=== PATIENT | female | born 1945 | race Caucasian/White ===

== ENCOUNTER 2022-11-23 04:50 | Inpatient (IN) ==
[2022-11-23] MEDS ORDERED: IOPAMIDOL 100 ML BOTTLE IV ONE (04:51)
--- NOTE | 2022-11-23 05:22 | Emergency Department Note ---
Fall HPI General Chief Complaint: Fall Stated Complaint: fall hit head Time Seen by Provider: 11/23/22 05:15 Mode of arrival: EMS History of Present Illness HPI Narrative: Narrative: This 77-year-old female presents from [place] after having fallen try to go to the bathroom. She states she just felt suddenly overwhelmed with weakness and went down. She denies any loss of consciousness but states she did hit the right side of her head. She remembers hitting her head and calling for help. Her daughter who is with her states that she has not been feeling well lately without any specific symptoms she coughs occasionally denies being febrile denies any urinary tract symptoms nausea vomiting or diarrhea. She states her mother's had septic pneumonia several times. Her past medical history is positive for diffuse arthritis polymyalgia rheumatica IBS hy pertension hypothyroidism, long-term history of tobacco use, and migraines. Related Data Home Medications Medication Instructions Recorded Confirmed aspirin 81 mg chewable tablet 81 mg PO DAILY 07/23/15 03/30/22 (Patricia Chewable Low Dose Aspirin) levothyroxine 88 mcg tablet 88 mcg PO DAILY 07/23/15 11/23/22 lorazepam 2 mg tablet (Ativan) 2 mg PO .COMPLEX 07/23/15 11/23/22 omeprazole 20 mg capsule,delayed 20 mcg PO DAILY 07/23/15 03/30/22 release trazodone 150 mg tablet 150 mg PO HS 07/23/15 11/23/22 albuterol sulfate 90 mcg/actuation 1 inh inhalation ONCE 01/08/21 03/30/22 aerosol inhaler (Ventolin HFA) amlodipine 5 mg tablet 5 mg PO QDAY 01/08/21 11/23/22 cholecalciferol (vitamin D3) 125 125 mcg PO QDAY 01/08/21 03/30/22 mcg (5,000 unit) capsule hydrochlorothiazide 25 mg tablet 25 mg PO QDAY 01/08/21 03/30/22 metoprolol succinate 50 mg 50 mg PO QDAY 01/08/21 11/23/22 tablet,extended release 24 hr naloxone 4 mg/actuation nasal 4 mg intranasal Q2M 01/08/21 11/23/22 spray (Narcan) apixaban 5 mg tablet (Eliquis) 5 mg PO BID 01/26/22 11/23/22 fentanyl 50 mcg/hr transdermal 1 patch transdermal Q48H 01/26/22 11/23/22 patch hydromorphone 4 mg tablet 4 mg PO Q6H PRN Pain, Severe 01/26/22 11/23/22 cephalexin 500 mg capsule 500 mg PO BID 03/30/22 03/30/22 promethazine 25 mg tablet 25 mg PO Q6H PRN Nausea 03/30/22 11/23/22 Metamucil 11/23/22 bismuth subsalicylate 262 mg PO 11/23/22 tablet (Pepto-Bismol) docusate sodium 100 mg PO DAILY 11/23/22 11/23/22 sumatriptan 100 mg PO 11/23/22 Previous Rx's Medication Instructions Recorded azithromycin 250 mg tablet 250 mg PO QDAY 4 days #4 tabs 11/23/22 Allergies Allergy/AdvReac Type Severity Reaction Status Date / Time nitrofurantoin Allergy Severe Swelling Verified 11/23/22 06:03 [From Macrobid] of Lip/Tongue/Throat Penicillins Allergy Mild Hives Verified 11/23/22 06:03 duloxetine [From Cymbalta] Allergy Unknown Confusion, Verified 11/23/22 06:03 Nausea sulfamethoxazole Allergy Unknown Abdominal Verified 11/23/22 06:03 [From Bactrim] pain, Nausea trimethoprim [From Bactrim] Allergy Unknown Abdominal Verified 11/23/22 06:03 pain, Nausea ciprofloxacin [From Cipro] Allergy Unknown Verified 11/23/22 06:03 moxifloxacin [From Avelox] AdvReac Mild Cramping Verified 11/23/22 06:03 of the Muscles Review of Systems ROS ROS Narrative: Narrative: All systems ED: reviewed and negative except as stated. [facility] Narrative Patient History Narrative: Narrative: Medical/Surgical/Family History All Active Problems (Updated 11/23/22 @ 06:56 by Pradeep Tomlinson MD) CHI (closed head injury) (Acute) Bronchitis (Acute) Spondylosis without myelopathy or radiculopathy, lumbar region (Acute) Spondylolysis, thoracolumbar region (Acute) Radiculopathy, lumbar region (Acute) Right foot pain (Acute) Osteoarthritis (Chronic) Bladder infection, chronic (Chronic) Polymyalgia rheumatica (Chronic) IBS (irritable bowel syndrome) (Chronic) Acute hepatitis A (Chronic) Arthritis (Chronic) Nausea (Chronic) Fibromyalgia (Chronic) Leg ulcer (Chronic) GERD (gastroesophageal reflux disease) (Chronic) Chronic bronchitis (Chronic) Pneumonia (Chronic) Essential hypertension (Chronic) Chronic pain (Chronic) Insomnia (Chronic) Depressive disorder (Chronic) Nicotine dependence (Chronic) Anxiety (Chronic) Pleural fibrosis (Chronic) Right knee pain (Chronic) Hypercholesterolemia (Chronic) Depression (Chronic) Hypothyroid (Chronic) Other specified disorders of urethra (Chronic) History of tobacco use (Chronic) Postlaminectomy syndrome, not elsewhere classified (Chronic) Other chronic pain (Chronic) Cervicalgia (Chronic) Myalgia (Chronic) Migraine with aura, intractable, without status migrainosus (Chronic) Medical History (Updated 11/23/22 @ 06:56 by Pradeep Tomlinson MD) Acute hepatitis A as a child Anxiety Arthritis Bladder infection, chronic Cervicalgia Chronic bronchitis Chronic pain Depression Depressive disorder Essential hypertension Fibromyalgia GERD (gastroesophageal reflux disease) History of tobacco use Hypercholesterolemia Hypothyroid IBS (irritable bowel syndrome) Insomnia Leg ulcer mixed arteriovenous Migraine with aura, intractable, without status migrainosus Myalgia Nausea Nicotine dependence Osteoarthritis Other chronic pain Other specified disorders of urethra spasms Pleural fibrosis post-infective Pneumonia Polymyalgia rheumatica Postlaminectomy syndrome, not elsewhere classified Radiculopathy, lumbar region Right foot pain Right knee pain Spondylolysis, 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, lumbar region Surgical History (Updated 01/28/21 @ 10:51 by Liset Madrigal) History of appendectomy History of back surgery spinal cord sterotaxis stimulation unit placement and removalarthr History of bilateral cataract extraction History of cervical spinal surgery History of hysterectomy History of left knee replacement History of lumbar surgery decompression History of repair of hiatal hernia History of replacement of both shoulder joints History of right knee joint replacement History of surgery SCS Permanent [facility] 07/25/1507/08 SCS Trial w/sed 07/08/201504/05 RFTC Bilat C3-7 w/ sed 04/03/1303/05 MBB Bilat C3-7 w/sed 03/13/1303/05 MBB Bilat C3-7 w/sed 02/26/1301/03 VIDAL #2 C6-7 w/o sed 01/10/201311/05 VIDAL #1 w/o sed 11-16-1209/04 VIDAL #3 C7-T1 and Sanchez Occipital Blocks w/out sed 06/04 Occipital Nerve Block Bilateral w/o sed 05-30-1206/04 VIDAL #2 w/o sed 05-30-1205/04 Shoulder Joint Injection 05-10-1205/04 VIDAL #1 w/o sed 05-10-1211/03 Catheter Dye Study, tip intact 11/10/10 w/o sed 04/02 VIDAL #1, C7-T1 04/16/10 w/o sed 12/03 IMPLANT OR REPLACEMENT PUMP [facility] 09/30 Trigger Point Injection 3 > 10/09/08 History of thumb surgery Right History of tonsillectomy and adenoidectomy Family History (Updated 01/22/22 @ 07:39 by Shirley Castellanos) Father , 84 CVA (cerebral vascular accident) Arthritis Brother Arthritis Sister Arthritis Mother , Age 96 Old age Social History Smoking Status: Former smoker Alcohol Intake Frequency: does not drink Substance Use: does not use Exam Narrative Narrative: Narrative: General: No acute distress alert and oriented x3 answers questions cogently. Skin: No abrasions ecchymosis or hematomas. Ortho: Full range of motion of all joints without deformities neck nontender to both lateral and dorsal compression head shows no raccoon eyes graham signs but the questionable right-sided hemotympanums. Lungs: Questionable right-sided rhonchi without rales or wheezes. CV: Regular rate and rhythm without murmurs clicks rubs or gallops neuro: GCS equals 15 cranial nerves II through XII are grossly intact there is no peripheral or sensorimotor deficits. Course Vital Signs Vital signs: Vital Signs Temperature 100.2 F H 11/23/22 04:50 Pulse Rate 62 11/23/22 04:50 Respiratory Rate 20 11/23/22 04:50 Blood Pressure 103/75 11/23/22 04:50 Pulse Oximetry (%) 86 L 11/23/22 04:50 Oxygen Delivery Method Room Air 11/23/22 04:50 Temperature 100.2 F H 11/23/22 04:50 Pulse Rate 53 L 11/23/22 06:01 Respiratory Rate 25 H 11/23/22 06:01 Blood Pressure 109/69 11/23/22 06:01 Pulse Oximetry (%) 94 11/23/22 06:01 Oxygen Delivery Method Nasal Cannula 11/23/22 05:16 Oxygen Flow Rate (L/min) 2 11/23/22 05:16 MDM MDM Narrative Medical decision making narrative: Narrative: Patient presented with a pulse ox of 86% without any respiratory distress. She also has a relative tachypnea, and developed a slight fever while in the ED. She is on Eliquis for previous a. fib, but has been in sinus rhythm while in the ED. She has a history of COPD, although she stopped smoking years ago, and its possible that she has a developing bronchitis, as well as the closed head injury. In talking to the daughter she had to move into [place] because her killed himself 2 months ago, after which they took her house and her dog, and while she is currently on Zoloft, I believe counseling could help. As for the head trauma, her head and neck CTs were negative, and she has no peripheral fractures. She is on a fentanyl patch and Dilaudid for arthritic pain, so there is nothing we can add for analgesia. We will consult [facility] for CBT. Sepsis Sepsis Identified: No Lab Data 11/23/22 05:53 Labs: Lab Results 11/23/22 11/23/22 11/23/22 Range/Units 05:46 05:46 05:53 WBC 8.2 (4.5-11.0) K/mcL RBC 4.01 (3.59-5.38) M/mcL Hgb 11.4 (11.2-15.7) g/dL Hct 36.4 (34.1-44.9) % POC Hct 35.0 L (36-48) MCV 90.8 (80.0-100.0) fL MCH 28.4 (26.0-34.0) pg MCHC 31.3 (31.0-36.0) g/dL RDW 14.2 (11.5-14.5) % Plt Count 175 (140-440) K/mcL MPV 10.0 (8.8-12.5) fL Immature Gran % (Auto) 0.4 (0.0-0.5) % Neut % (Auto) 78.7 H (38.0-78.0) % Lymph % (Auto) 8.8 L (15.5-49.0) % [place] % (Auto) 11.0 (1.0-12.0) % Eos % (Auto) 0.9 (0.0-7.0) % Baso % (Auto) 0.2 (0.0-2.0) % Lymph # (Auto) 0.72 L (1.50-4.80) K/mcL [place] # (Auto) 0.90 (0.10-0.90) K/mcL Eos # (Auto) 0.07 (0.00-0.70) K/mcL Baso # (Auto) 0.02 (0.00-0.30) K/mcL Immature Gran # 0.03 (0.00-0.05) K/mcl Absolute Neutrophils 6.41 (1.80-8.00) K/mcL POC VBG pH 7.39 (7.32-7.42) POC VBG pCO2 at Temp 45.7 (41-51) POC VBG pO2 29 (25-40) POC VBG HCO3 27.7 (24-28) POC VBG Total CO2 29.0 (25-29) POC Venous O2 Sat 53.0 (40-70) POC VBG Base Excess 3.0 H (-2-2) VBG Lactic Acid 0.5 (0.5-2) POC Sodium 141 (133-145) POC Potassium 3.6 (3.3-5.1) POC Chloride 102 (96-108) POC Total CO2 30.0 (22-30) POC BUN 17 (6-20) POC Creatinine 1.2 (0.6-1.2) POC Glucose 106 H (70-105) POC WB Ioniz Calcium 1.15 L (1.16-1.32) Procalcitonin (<0.10) ng/mL 11/23/22 Range/Units 05:53 WBC (4.5-11.0) K/mcL RBC (3.59-5.38) M/mcL Hgb (11.2-15.7) g/dL Hct (34.1-44.9) % POC Hct (36-48) MCV (80.0-100.0) fL MCH (26.0-34.0) pg MCHC (31.0-36.0) g/dL RDW (11.5-14.5) % Plt Count (140-440) K/mcL MPV (8.8-12.5) fL Immature Gran % (Auto) (0.0-0.5) % Neut % (Auto) (38.0-78.0) % Lymph % (Auto) (15.5-49.0) % [place] % (Auto) (1.0-12.0) % Eos % (Auto) (0.0-7.0) % Baso % (Auto) (0.0-2.0) % Lymph # (Auto) (1.50-4.80) K/mcL [place] # (Auto) (0.10-0.90) K/mcL Eos # (Auto) (0.00-0.70) K/mcL Baso # (Auto) (0.00-0.30) K/mcL Immature Gran # (0.00-0.05) K/mcl Absolute Neutrophils (1.80-8.00) K/mcL POC VBG pH (7.32-7.42) POC VBG pCO2 at Temp (41-51) POC VBG pO2 (25-40) POC VBG HCO3 (24-28) POC VBG Total CO2 (25-29) POC Venous O2 Sat (40-70) POC VBG Base Excess (-2-2) VBG Lactic Acid (0.5-2) POC Sodium (133-145) POC Potassium (3.3-5.1) POC Chloride (96-108) POC Total CO2 (22-30) POC BUN (6-20) POC Creatinine (0.6-1.2) POC Glucose (70-105) POC WB Ioniz Calcium (1.16-1.32) Procalcitonin 0.35 H (<0.10) ng/mL ED POC Tests ED POC Tests: ADRIANO - Influenza A Negative ADRIANO - Influenza B Negative ADRIANO - SARS Antigen Negative Discharge Plan Patient/Caregiver Discharge Instructions Pt seen by DRY CLEANING SUPERVISOR/PA only: No Clinical Impression: CHI (closed head injury), Bronchitis Instructions: Head Injury (ED), Acute Bronchitis (ED) Patient Disposition: Xfer Assisted Living Facility Follow up with: Pradeep Florian DO [Primary Care Provider] - Prescriptions: New azithromycin 250 mg tablet 250 mg PO QDAY 4 Days Qty: 4 0RF Rx Instructions: start on day 2 of therapy No Action amlodipine 5 mg tablet 5 mg PO QDAY hydrochlorothiazide 25 mg tablet 25 mg PO QDAY metoprolol succinate 50 mg tablet extended release 24 hr 50 mg PO QDAY Narcan 4 mg/actuation spray,non-aerosol 4 mg intranasal Q2M Rx Instructions: spray 1 dose into ONE nostril; alternate nostrils w each dose until help arrives albuterol sulfate [Ventolin HFA] 90 mcg/actuation HFA aerosol inhaler 1 inh inhalation ONCE cholecalciferol (vitamin D3) 125 mcg (5,000 unit) capsule 125 mcg PO QDAY fentanyl 50 mcg/hr patch 72 hour 1 patch transdermal Q48H hydromorphone 4 mg tablet 4 mg PO Q6H PRN (Reason: Pain, Severe) Eliquis 5 mg tablet 5 mg PO BID promethazine 25 mg tablet 25 mg PO Q6H PRN (Reason: Nausea) cephalexin 500 mg capsule 500 mg PO BID levothyroxine 88 MCG tablet 88 mcg PO DAILY lorazepam [Ativan] 2 MG tablet 2 mg PO .COMPLEX Rx Instructions: as needed trazodone 150 MG tablet 150 mg PO HS omeprazole 20 MG capsule 20 mcg PO DAILY aspirin [Patricia Chewable Aspirin] 81 MG tablet,chewable 81 mg PO DAILY Metamucil capsule Pepto-Bismol 262 mg Tablet PO docusate sodium 100 mg 100 mg PO DAILY sumatriptan 100 mg 100 mg PO
--- NOTE | 2022-11-23 05:49 | Cat Scan Report ---
INDICATION: FALL COMPARISON: None. TECHNIQUE: Axial noncontrast-enhanced images through the brain. Sagittally and coronally reformatted images. FINDINGS: Cerebral hemispheres:Negative. No intra-axial abnormality. No intra-axial hematoma. No localized mass effect. There is mild cerebral atrophy. This is probably within normal limits for age. Nonacute infarct of the paramesial posterior left parietal lobe and occipital lobe. No acute intra-axial abnormality. Brainstem and cerebellum:No intra-axial abnormality Extra-axial:No acute hemorrhage. No subdural or epidural hematoma. No subarachnoid hemorrhage. Basilar cisterns are normal Calvarial:No calvarial fracture. No lytic lesion Temporal bones are negative. No destructive lesions Soft tissue, orbits, sinuses:Orbits and visualized facial soft tissues and paranasal sinuses are negative IMPRESSION: 1. No acute intracranial hemorrhage. No acute abnormality 2. Mild cerebral atrophy. 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 The exam was performed using radiation dose optimization techniques including, but not limited to, automated exposure control, adjustment of the mA and/or kV according to patient size and use of iterative reconstruction technique. Interpreted and Authenticated by: Ky Monk 11/23/22
[2022-11-23 05:50] LABS: POC Calcium, Ionized 1.15 (1.16-1.32); POC Creatinine 1.2 (0.6-1.2); POC Potassium 3.6 (3.3-5.1)
--- NOTE | 2022-11-23 05:54 | Cat Scan Report ---
INDICATION: FALL COMPARISON: None. TECHNIQUE: Axial thin section images through the cervical spine. Sagittally and coronally reformatted images. The exam was performed using radiation dose optimization techniques including, but not limited to, automated exposure control, adjustment of the mA and/or kV according to patient size and use of iterative reconstruction technique. FINDINGS: Vertebral bodies, spinous processes:No vertebral body or spinous process fracture. No acute abnormality. Alignment is anatomic without anterolisthesis Normal odontoid process. No fracture. Occipital condyles and C1 are negative. No atlantoaxial subluxation. Facets:No perched or locked facet. No facet complex fracture. There is multilevel degenerative facet arthropathy. Disc spaces:Severe disc narrowing at C6-7. Temporal bones:Negative. No basilar skull fracture Cervical soft tissues: Negative. No prevertebral soft tissue swelling. Lung apices:No pneumothorax. No focal apical parenchymal mass. There is significant centrilobular emphysema as well as bronchial wall thickening. Appearance is consistent with emphysema and chronic bronchitis. Clinical correlation for smoking history recommended. IMPRESSION: 1. Degenerative disc disease and facet arthropathy 2. No cervical spine fracture 3. Centrilobular emphysema consistent with smoking. There is bronchial wall thickening consistent with chronic bronchitis Interpreted and Authenticated by: Ky Monk 11/23/22
[2022-11-23] MEDS ORDERED: ACETAMINOPHEN 500 MG TABLET PO ONE (06:06)
[2022-11-23 06:29] LABS: Basophils # (Auto) 0.02 K/mcL (0.00-0.30); Basophils % (Auto) 0.2 % (0.0-2.0); Eosinophils # (Auto) 0.07 K/mcL (0.00-0.70); Eosinophils % (Auto) 0.9 % (0.0-7.0); Hematocrit 36.4 % (34.1-44.9); Hemoglobin 11.4 g/dL (11.2-15.7); Lymphocytes # (Auto) 0.72 K/mcL (1.50-4.80); Lymphocytes % (Auto) 8.8 % (15.5-49.0); Mean Cell Volume 90.8 fL (80.0-100.0); Mean Corpuscular HGB Conc 31.3 g/dL (31.0-36.0); Neutrophils % (Auto) 78.7 % (38.0-78.0); Platelet Count 175 K/mcL (140-440); RBC 4.01 M/mcL (3.59-5.38); Red Cell Distribution Width 14.2 % (11.5-14.5); WBC 8.2 K/mcL (4.5-11.0)
[2022-11-23] MEDS ORDERED: AZITHROMYCIN 500 MG in DEXTROSE 5% IN WATER 250 ML IV ONE (06:33)
--- NOTE | 2022-11-23 06:38 | XRay Report ---
INDICATION: desaturating TECHNIQUE: AP portable semiupright chest x-ray COMPARISON: None FINDINGS: Lungs:Diffuse interstitial abnormality. CT scan of the cervical spine demonstrated centrilobular emphysema and changes of bronchitis. Small left upper lobe nodule is possible. Comparison with previous chest x-rays or chest CT scan recommended. Heart, vascular:No significant cardiomegaly. Pulmonary vascularity is normal. No pulmonary edema or pulmonary congestion Mediastinum, vahid:No mediastinal widening. No hilar mass Pleura:There is no pneumothorax. No hemothorax. Skeletal:No acute rib fractures. Previous right reverse shoulder arthroplasty. Previous left shoulder arthroplasty. IMPRESSION: 1. Diffuse pulmonary parenchymal abnormality. Appearance is consistent with emphysema and chronic bronchitis is demonstrated on cervical spine CT scan 2. No acute posttraumatic abnormality 3. Possible small left apical nodule. Comparison with previous chest x-rays or chest CT scan recommended Interpreted and Authenticated by: Ky Monk 11/23/22
[2022-11-23] MEDS ORDERED: 0.9 % SODIUM CHLORIDE 500 ML IV ONE ×2 (06:44→10:25)
[2022-11-23] MEDS ORDERED: ONDANSETRON 4 MG/2 ML VIAL IV ONE (07:03)
--- NOTE | 2022-11-23 07:54 | Emergency Department Note ---
Course Course Course Narrative: Patient is a 77-year-old female signed out to me by Dr. Tomlinson. Briefly, patient presented due to a fall, but was found to have an O2 saturation of 90% upon arrival. This did improve during the emergency department stay, and for the majority of the stay she was greater than 90% on room air. Because patient was tachypneic and had a fall Dr. Tomlinson did order a D-dimer, EKG, and troponin that were pending at the time of signout. Vital Signs Vital signs: Vital Signs Temperature 100.2 F H 11/23/22 04:50 Pulse Rate 62 11/23/22 04:50 Respiratory Rate 20 11/23/22 04:50 Blood Pressure 103/75 11/23/22 04:50 Pulse Oximetry (%) 86 L 11/23/22 04:50 Oxygen Delivery Method Room Air 11/23/22 04:50 Temperature 98.8 F 11/23/22 07:24 Pulse Rate 43 L 11/23/22 12:01 Respiratory Rate 25 H 11/23/22 06:01 Blood Pressure 89/51 11/23/22 12:01 Pulse Oximetry (%) 98 11/23/22 12:01 Oxygen Delivery Method Nasal Cannula 11/23/22 12:01 Oxygen Flow Rate (L/min) 2 11/23/22 12:01 [facility] MDM Narrative Medical decision making narrative: Narrative: Patient is a 77-year-old female who presents to the emergency department due to fall. After signout patient did begin to have oxygen desaturations. D-dimer did come back elevated, so a CT angio was performed. CT angio was negative for pulmonary embolus, but did demonstrate an area concerning for atypical pneumonia. Patient has received ceftriaxone and azithromycin. Due to desaturation and concern for pneumonia I have spoken to Dr. Rosen who has agreed to see and evaluate patient for admission. Lab Data 11/23/22 05:53 Labs: Lab Results 11/23/22 11/23/22 11/23/22 Range/Units 05:46 05:46 05:53 WBC 8.2 (4.5-11.0) K/mcL RBC 4.01 (3.59-5.38) M/mcL Hgb 11.4 (11.2-15.7) g/dL Hct 36.4 (34.1-44.9) % POC Hct 35.0 L (36-48) MCV 90.8 (80.0-100.0) fL MCH 28.4 (26.0-34.0) pg MCHC 31.3 (31.0-36.0) g/dL RDW 14.2 (11.5-14.5) % Plt Count 175 (140-440) K/mcL MPV 10.0 (8.8-12.5) fL Immature Gran % (Auto) 0.4 (0.0-0.5) % Neut % (Auto) 78.7 H (38.0-78.0) % Lymph % (Auto) 8.8 L (15.5-49.0) % [place] % (Auto) 11.0 (1.0-12.0) % Eos % (Auto) 0.9 (0.0-7.0) % Baso % (Auto) 0.2 (0.0-2.0) % Lymph # (Auto) 0.72 L (1.50-4.80) K/mcL [place] # (Auto) 0.90 (0.10-0.90) K/mcL Eos # (Auto) 0.07 (0.00-0.70) K/mcL Baso # (Auto) 0.02 (0.00-0.30) K/mcL Immature Gran # 0.03 (0.00-0.05) K/mcl Absolute Neutrophils 6.41 (1.80-8.00) K/mcL D-Dimer (0.27-0.50) ug/mL POC VBG pH 7.39 (7.32-7.42) POC VBG pCO2 at Temp 45.7 (41-51) POC VBG pO2 29 (25-40) POC VBG HCO3 27.7 (24-28) POC VBG Total CO2 29.0 (25-29) POC Venous O2 Sat 53.0 (40-70) POC VBG Base Excess 3.0 H (-2-2) VBG Lactic Acid 0.5 (0.5-2) POC Sodium 141 (133-145) POC Potassium 3.6 (3.3-5.1) POC Chloride 102 (96-108) POC Total CO2 30.0 (22-30) POC BUN 17 (6-20) POC Creatinine 1.2 (0.6-1.2) POC Glucose 106 H (70-105) POC WB Ioniz Calcium 1.15 L (1.16-1.32) Procalcitonin (<0.10) ng/mL POC Troponin I (0.00-0.08) 11/23/22 11/23/22 11/23/22 Range/Units 05:53 05:53 07:17 WBC (4.5-11.0) K/mcL RBC (3.59-5.38) M/mcL Hgb (11.2-15.7) g/dL Hct (34.1-44.9) % POC Hct (36-48) MCV (80.0-100.0) fL MCH (26.0-34.0) pg MCHC (31.0-36.0) g/dL RDW (11.5-14.5) % Plt Count (140-440) K/mcL MPV (8.8-12.5) fL Immature Gran % (Auto) (0.0-0.5) % Neut % (Auto) (38.0-78.0) % Lymph % (Auto) (15.5-49.0) % [place] % (Auto) (1.0-12.0) % Eos % (Auto) (0.0-7.0) % Baso % (Auto) (0.0-2.0) % Lymph # (Auto) (1.50-4.80) K/mcL [place] # (Auto) (0.10-0.90) K/mcL Eos # (Auto) (0.00-0.70) K/mcL Baso # (Auto) (0.00-0.30) K/mcL Immature Gran # (0.00-0.05) K/mcl Absolute Neutrophils (1.80-8.00) K/mcL D-Dimer 0.84 H (0.27-0.50) ug/mL POC VBG pH (7.32-7.42) POC VBG pCO2 at Temp (41-51) POC VBG pO2 (25-40) POC VBG HCO3 (24-28) POC VBG Total CO2 (25-29) POC Venous O2 Sat (40-70) POC VBG Base Excess (-2-2) VBG Lactic Acid (0.5-2) POC Sodium (133-145) POC Potassium (3.3-5.1) POC Chloride (96-108) POC Total CO2 (22-30) POC BUN (6-20) POC Creatinine (0.6-1.2) POC Glucose (70-105) POC WB Ioniz Calcium (1.16-1.32) Procalcitonin 0.35 H (<0.10) ng/mL POC Troponin I 0.02 (0.00-0.08) ED POC Tests ED POC Tests: ADRIANO - Influenza A Negative ADRIANO - Influenza B Negative ADRIANO - SARS Antigen Negative EKG Data EKG #1: EKG attestation: Yes I reviewed and interpreted this EKG. EKG results narrative: Sinus bradycardia with a rate of 57, normal axis, [place] 186, QRS of 137, QTC of 472, T wave flattening in leads III, aVF, V3, and V4, and absence of ST elevation or depression. Discharge Plan Patient/Caregiver Discharge Instructions Pt seen by INSTRUMENT/CONTROL TECHNICIAN/PA only: No Clinical Impression: CHI (closed head injury), Bronchitis Instructions: Head Injury (ED), Acute Bronchitis (ED) Patient Disposition: Xfer As Inpt ([facility]) Follow up with: Pradeep Florian DO [Primary Care Provider] - Prescriptions: No Action amlodipine 5 mg tablet 5 mg PO QDAY metoprolol succinate 50 mg tablet extended release 24 hr 50 mg PO QDAY Narcan 4 mg/actuation spray,non-aerosol 4 mg intranasal Q2M Rx Instructions: spray 1 dose into ONE nostril; alternate nostrils w each dose until help arrives fentanyl 50 mcg/hr patch 72 hour 1 patch transdermal Q48H hydromorphone 4 mg tablet 4 mg PO Q6H PRN (Reason: Pain, Severe) Eliquis 5 mg tablet 5 mg PO BID promethazine 25 mg tablet 25 mg PO Q6H PRN (Reason: Nausea) levothyroxine 88 MCG tablet 88 mcg PO DAILY lorazepam [Ativan] 2 MG tablet 2 mg PO .COMPLEX Rx Instructions: as needed trazodone 150 MG tablet 150 mg PO HS Metamucil capsule 2 cap PO DAILY docusate sodium 100 mg 100 mg PO DAILY sumatriptan 100 mg 100 mg PO PRN PRN (Reason: Headache)
--- NOTE | 2022-11-23 08:59 | EKG ---
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 Measurements Intervals [place] Rate: 57 P: 71 [place]: 186 QRS: 50 QRSD: 137 T: 22 QT: 484 QTc: 472 Interpretive Statements Sinus rhythm Right bundle branch block Electronically Signed On 11-23-2022 8:59:12 PST by Ky Bowers M.D. /store/[id number]
--- NOTE | 2022-11-23 09:14 | Cat Scan Report ---
INDICATION: SOB, tachypnea, elevated D dimer COMPARISON: Chest x-ray dated 11/23/2022 TECHNIQUE: Axial images obtained through the chest. 60ml Isovue 370 injected intravenously, and scanning was performed during pulmonary arterial phase. Sagittally and coronally reformatted images were obtained. MIP reformatted images. FINDINGS: Lungs:Prominent centrilobular emphysema consistent with smoking history. There is bilateral apical pleural thickening. Appearance is most consistent with chronic scarring Left lung is smaller than the right. There is interstitial abnormality which may be due to volume loss or interstitial fibrosis. Atypical pneumonia is also possible. Comparison with any prior examinations would be helpful There is a noncalcified nodule in the lingular segment of the left upper lobe. This measures 9 mm and is best visualized on image 64. Fleischner Society recommendations: PET/CT, 4 3 month follow-up CT scan Mediastinum, vascular:Main pulmonary artery, right pulmonary artery, left pulmonary artery are negative. No intraluminal filling defects. No lobar, segmental, or subsegmental emboli. Thoracic aorta is negative. No aneurysmal dilatation No pathologic mediastinal or hilar adenopathy Heart:No cardiomegaly. No pericardial effusion. Mild coronary artery calcification in the left anterior descending coronary artery. There is reflux of contrast material into the inferior vena cava and hepatic veins consistent with right heart strain. Pleura:Findings consistent with pleural scarring bilaterally. No significant pleural effusion Axilla, supraclavicular regions, chest wall:No pathologic axillary or supraclavicular adenopathy. Musculoskeletal:Negative thoracic spine. No compression fracture. No lytic lesion. No rib or sternal lesions. There are spinal cord stimulator leads within the lower thoracic spinal canal Upper Abdomen:Moderate hiatal hernia. IMPRESSION: 1. Negative pulmonary CTA. No pulmonary embolism 2. Centrilobular emphysema 3. 9 mm noncalcified nodule in the lingular segment left upper lobe. Follow-up recommended as above 4. Interstitial abnormality, predominantly in the left lung. Atypical pneumonia, pulmonary fibrosis, more volume loss are possible. 5. Reflux of contrast material into the inferior vena cava and hepatic veins consistent with right heart strain 6. Moderate hiatal hernia The exam was performed using radiation dose optimization techniques including, but not limited to, automated exposure control, adjustment of the mA and/or kV according to patient size and use of iterative reconstruction technique. Interpreted and Authenticated by: Ky Monk 11/23/22
[2022-11-23] MEDS ORDERED: cefTRIAXone 1 GM VIAL IV ONE (09:22)
[2022-11-23] MEDS ORDERED: SUMAtriptan SUCCINATE 50 MG TABLET PO PRN (11:18)
--- NOTE | 2022-11-23 11:37 | Internal Med History&Physical ---
HPI History of Present Illness Patient information: Note initiated : 11/23/22 at 11:25 am Service Date, if different from initiated Date: [] Patient: Heidi Bailey a 77 y/o F admitted on for fall hit head. Chief Complaint: [weakness and fall] Chief complaint: weakness and fall History of present illness: Ms. Bailey is a 77 year old F history of COPD, fibromyalgia, arthritis, essential hypertensions, hypothyroidism, [facility] resident, presenting with weakness and fall. Patient is complaining of weakness for 1 week. She is also complaining of cough for 2 days. She is complaining of chills and diaphoresis for 3 days. Her legs gave up and she fell today. No loss of consciousness. She denies respiratory wheezing. She denies shortness of breath. She denies fever. Vital signs significant for pericardia heart rate in the 40s beats per minute and blood pressure guarded latest 191/50 6 mmHg. She is also being placed on 2 L nasal cannula oxygen's. Labs significant for lack of leukocytosis with WBC 8.2. D-dimer 0.84. Procalcitonin 0.35. Lactic acid pending. COVID screening negative. CTA negative for pulmonary embolism. Finding otherwise suggestive of atypical pneumonia in the presence of chronic bronchitis. 9mm noncalcified nodule in the lingular segment left upper lobe. Admission request was called for atypical pneumonia. Constitutional Constitutional: Present chills, excessive sweating, frequent falls and weakness; Absent fatigue or fever(s) EENT Eyes: Absent blurry vision, change in vision, loss of vision or other visual disturbances Ears: Absent decreased hearing or tinnitus Nose, mouth and throat: Absent abnormal hearing, dry mouth, headache(s), nasal congestion or sore throat Cardiovascular Cardiovascular: Absent chest pain, chest pain at rest, edema, irregular heart rhythm or palpatations Respiratory Respiratory: Present cough; Absent dyspnea or wheezing Gastrointestinal Gastrointestinal: Absent abdominal pain, constipation, diarrhea, nausea or vomiting Musculoskeletal Musculoskeletal: Absent back pain, deformity, limited range of motion, muscle cramps, muscle weakness or numbness Integumentary Integumentary: Absent lesions, rash or wounds Neurological Neurological: Absent focal weakness, headache(s) or numbness Psychiatric Psychiatric: Absent anxiety, depression or hallucinations PFSH PFSH All Active Problems (Updated 11/23/22 @ 11:34 by Rudi Rosen MD) Pulmonary nodule less than 1 cm in diameter with low risk for malignant neoplasm (Acute) Acute and chronic respiratory failure with hypoxia (Acute) CHI (closed head injury) (Acute) Bronchitis (Acute) Spondylosis without myelopathy or radiculopathy, lumbar region (Acute) Spondylolysis, thoracolumbar region (Acute) Radiculopathy, lumbar region (Acute) Right foot pain (Acute) Osteoarthritis (Chronic) Bladder infection, chronic (Chronic) Polymyalgia rheumatica (Chronic) IBS (irritable bowel syndrome) (Chronic) Acute hepatitis A (Chronic) Arthritis (Chronic) Nausea (Chronic) Fibromyalgia (Chronic) Leg ulcer (Chronic) GERD (gastroesophageal reflux disease) (Chronic) Chronic bronchitis (Chronic) Pneumonia (Chronic) Essential hypertension (Chronic) Chronic pain (Chronic) Insomnia (Chronic) Depressive disorder (Chronic) Nicotine dependence (Chronic) Anxiety (Chronic) Pleural fibrosis (Chronic) Right knee pain (Chronic) Hypercholesterolemia (Chronic) Depression (Chronic) Hypothyroid (Chronic) Other specified disorders of urethra (Chronic) History of tobacco use (Chronic) Postlaminectomy syndrome, not elsewhere classified (Chronic) Other chronic pain (Chronic) Cervicalgia (Chronic) Myalgia (Chronic) Migraine with aura, intractable, without status migrainosus (Chronic) Medical History (Updated 11/23/22 @ 11:34 by Rudi Rosen MD) Acute hepatitis A as a child Anxiety Arthritis Bladder infection, chronic Cervicalgia Chronic bronchitis Chronic pain Depression Depressive disorder Essential hypertension Fibromyalgia GERD (gastroesophageal reflux disease) History of tobacco use Hypercholesterolemia Hypothyroid IBS (irritable bowel syndrome) Insomnia Leg ulcer mixed arteriovenous Migraine with aura, intractable, without status migrainosus Myalgia Nausea Nicotine dependence Osteoarthritis Other chronic pain Other specified disorders of urethra spasms Pleural fibrosis post-infective Pneumonia Polymyalgia rheumatica Postlaminectomy syndrome, not elsewhere classified Radiculopathy, lumbar region Right foot pain Right knee pain Spondylolysis, 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, lumbar region Surgical History (Updated 01/28/21 @ 10:51 by Liset Madrigal) History of appendectomy History of back surgery spinal cord sterotaxis stimulation unit placement and removalarthr History of bilateral cataract extraction History of cervical spinal surgery History of hysterectomy History of left knee replacement History of lumbar surgery decompression History of repair of hiatal hernia History of replacement of both shoulder joints History of right knee joint replacement History of surgery SCS Permanent TSM[facility] 07/25/1507/08 SCS Trial w/sed 07/08/201504/05 RFTC Bilat C3-7 w/ sed 04/03/1303/05 MBB Bilat C3-7 w/sed 03/13/1303/05 MBB Bilat C3-7 w/sed 02/26/1301/03 VIDAL #2 C6-7 w/o sed 01/10/201311/05 VIDAL #1 w/o sed 11-16-1209/04 VIDAL #3 C7-T1 and Sanchez Occipital Blocks w/out sed 06/04 Occipital Nerve Block Bilateral w/o sed 05-30-1206/04 VIDAL #2 w/o sed 05-30-1205/04 Shoulder Joint Injection 05-10-1205/04 VIDAL #1 w/o sed 05-10-1211/03 Catheter Dye Study, tip intact 11/10/10 w/o sed 04/02 VIDAL #1, C7-T1 04/16/10 w/o sed 12/03 IMPLANT OR REPLACEMENT PUMP [facility] 09/30 Trigger Point Injection 3 > 10/09/08 History of thumb surgery Right History of tonsillectomy and adenoidectomy Family History (Updated 01/22/22 @ 07:39 by Shirley Castellanos) Father , 84 CVA (cerebral vascular accident) Arthritis Brother Arthritis Sister Arthritis Mother , Age 96 Old age Social History (Updated 01/18/22 @ 15:15 by Vannessa Arana) education level: high school 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 sexually active: Yes physical activity: walking smoking status: Former smoker alcohol intake frequency: does not drink substance use type: does not use seatbelt use: always working smoke detector in home: Yes MEDS/ALLERGIES Home Medications and Allergies Home Medications Medication Instructions Recorded Confirmed Type levothyroxine 88 mcg tablet 88 mcg PO DAILY 07/23/15 11/23/22 History lorazepam 2 mg tablet (Ativan) 2 mg PO .COMPLEX 07/23/15 11/23/22 History trazodone 150 mg tablet 150 mg PO HS 07/23/15 11/23/22 History amlodipine 5 mg tablet 5 mg PO QDAY 01/08/21 11/23/22 History metoprolol succinate 50 mg 50 mg PO QDAY 01/08/21 11/23/22 History tablet,extended release 24 hr naloxone 4 mg/actuation nasal 4 mg intranasal Q2M 01/08/21 11/23/22 History spray (Narcan) apixaban 5 mg tablet (Eliquis) 5 mg PO BID 01/26/22 11/23/22 History fentanyl 50 mcg/hr transdermal 1 patch transdermal Q48H 01/26/22 11/23/22 History patch hydromorphone 4 mg tablet 4 mg PO Q6H PRN Pain, Severe 01/26/22 11/23/22 History promethazine 25 mg tablet 25 mg PO Q6H PRN Nausea 03/30/22 11/23/22 History Metamucil 2 cap PO DAILY 11/23/22 11/23/22 History docusate sodium 100 mg PO DAILY 11/23/22 11/23/22 History sumatriptan 100 mg PO PRN PRN Headache 11/23/22 11/23/22 History Allergies Allergy/AdvReac Type Severity Reaction Status Date / Time nitrofurantoin Allergy Severe Swelling Verified 11/23/22 06:03 [From Macrobid] of Lip/Tongue/Throat Penicillins Allergy Mild Hives Verified 11/23/22 06:03 duloxetine [From Cymbalta] Allergy Unknown Confusion, Verified 11/23/22 06:03 Nausea sulfamethoxazole Allergy Unknown Abdominal Verified 11/23/22 06:03 [From Bactrim] pain, Nausea trimethoprim [From Bactrim] Allergy Unknown Abdominal Verified 11/23/22 06:03 pain, Nausea ciprofloxacin [From Cipro] Allergy Unknown Verified 11/23/22 06:03 moxifloxacin [From Avelox] AdvReac Mild Cramping Verified 11/23/22 06:03 of the Muscles EXAM Constitutional Vitals: Temp Pulse Resp BP Pulse Ox O2 Del Method O2 Flow Rate 37.1 C 42 L 25 H 91/56 97 Nasal Cannula 2 11/23/22 07:24 11/23/22 11:16 11/23/22 06:01 11/23/22 11:16 11/23/22 11:16 11/23/22 11:16 11/23/22 11:16 General appearance: cooperative and no acute distress Head Head exam: Present atraumatic and normocephalic Eye Eye exam: Present EOMI and PERRL ENT ENT exam: Present mucous membranes moist, normal exam and normal external ear exam Additional comments: Nasal cannula in place Neck Neck exam: Present normal inspection; Absent lymphadenopathy, tenderness or thyromegaly Respiratory Respiratory exam: Present decreased breath sounds; Absent accessory muscle use, respiratory distress or wheezes Cardiovascular Cardiovascular exam: Present bradycardia; Absent JVD GI/Abdominal GI/Abdominal exam: Present normal bowel sounds and soft; Absent organomegaly or tenderness Extremities Exam Extremities exam: Present full ROM, normal capillary refill and normal inspection; Absent tenderness Neurological Exam Neurological exam: Present alert, CN II-XII intact and oriented X3; Absent motor sensory deficit Psychiatric Psychiatric exam: Present normal affect and normal mood; Absent anxious or depressed Skin Skin exam: Present dry and intact DATA Data Completed and Pending Labs: Labs from last 24 hours 11/23/22 11/23/22 11/23/22 07:17 05:53 05:53 WBC RBC Hgb Hct POC Hct MCV MCH MCHC RDW Plt Count MPV Immature Gran % (Auto) Neut % (Auto) Lymph % (Auto) [place] % (Auto) Eos % (Auto) Baso % (Auto) Lymph # (Auto) [place] # (Auto) Eos # (Auto) Baso # (Auto) Immature Gran # Absolute Neutrophils D-Dimer 0.84 H POC VBG pH POC VBG pCO2 at Temp POC VBG pO2 POC VBG HCO3 POC VBG Total CO2 POC Venous O2 Sat POC VBG Base Excess VBG Lactic Acid POC Sodium POC Potassium POC Chloride POC Total CO2 POC BUN POC Creatinine POC Glucose POC WB Ioniz Calcium Procalcitonin 0.35 H POC Troponin I 0.02 11/23/22 11/23/22 11/23/22 05:53 05:46 05:46 WBC 8.2 RBC 4.01 Hgb 11.4 Hct 36.4 POC Hct 35.0 L MCV 90.8 MCH 28.4 MCHC 31.3 RDW 14.2 Plt Count 175 MPV 10.0 Immature Gran % (Auto) 0.4 Neut % (Auto) 78.7 H Lymph % (Auto) 8.8 L [place] % (Auto) 11.0 Eos % (Auto) 0.9 Baso % (Auto) 0.2 Lymph # (Auto) 0.72 L [place] # (Auto) 0.90 Eos # (Auto) 0.07 Baso # (Auto) 0.02 Immature Gran # 0.03 Absolute Neutrophils 6.41 D-Dimer POC VBG pH 7.39 POC VBG pCO2 at Temp 45.7 POC VBG pO2 29 POC VBG HCO3 27.7 POC VBG Total CO2 29.0 POC Venous O2 Sat 53.0 POC VBG Base Excess 3.0 H VBG Lactic Acid 0.5 POC Sodium 141 POC Potassium 3.6 POC Chloride 102 POC Total CO2 30.0 POC BUN 17 POC Creatinine 1.2 POC Glucose 106 H POC WB Ioniz Calcium 1.15 L Procalcitonin POC Troponin I A/P Assessment and plan (1) Arthritis: Status: Chronic (2) Fibromyalgia: Status: Chronic (3) Chronic bronchitis: Status: Chronic (4) Pneumonia: Status: Chronic (5) Essential hypertension: Status: Chronic (6) Hypothyroid: Status: Chronic (7) Acute and chronic respiratory failure with hypoxia: Status: Acute (8) Pulmonary nodule less than 1 cm in diameter with low risk for malignant neoplasm: Status: Acute Narrative A/P Narrative: Assessment and Plans: 1. Acute on chronic respiratory failure with hypoxia, atypical pneumonia, h/o chronic bronchitis/COPD: Inpatient med surg Supplemental oxygen, titrate to achieve spo2 88-92% Serial lactic acid Procalcitonin cbc w/ auto diff in the morning to trend WBC Rocephin Zithromax NS@100cc/hr Tylenol Robitussin DM Physical therapy evaluation and treatment 2. 9mm noncalcified nodule in the lingular segment left upper lobe: Follow up serial imaging 3. Fibromyalgia: Fentanyl patch Dilaudid Tylenol Physical therapy evaluation and treatment 4. Arthritis, general: Fentanyl patch Dilaudid Tylenol Physical therapy evaluation and treatment 5. Essential hypertension, h/o: Hold Metoprolol succinate due to soft blood pressure/bradycardia Hold Amlodipine due to soft blood pressure 6. Hypothyroidism: Continue thyroid replacement therapy GI ppx: not currently indicated DVT ppx: Eliquis Code status: DNR Prognosis: guarded Disposition: inpatient med surg; PT Time Spent With Patient Time: Total time spent is greater than 50% in coordination of care (as documented) at patient's floor/unit and/or counseling patient: Initial: Total time with patient: 55 - 74 minutes
[2022-11-23] MEDS ORDERED: traZODone HCL 50 MG TABLET PO PRN (12:56)
[2022-11-23] MEDS ORDERED: ONDANSETRON 4 MG/2 ML VIAL IV PRN (12:56)
[2022-11-23] MEDS ORDERED: ACETAMINOPHEN 325 MG TABLET PO PRN (12:56)
[2022-11-23] MEDS ORDERED: morphine 4 MG/ML VIAL IV PRN (12:56)
[2022-11-23] MEDS ORDERED: guaiFENesin/DEXTROMETHORPHAN 5ML UD CUP PO PRN (12:56)
[2022-11-23] MEDS ORDERED: cefTRIAXone 1 GM in DEXTROSE 5% IN WATER 50 ML IV SCH (12:56)
[2022-11-23] MEDS ORDERED: IPRATROPIUM/ALBUTEROL 3 ML AMPUL.NEB NEB PRN (12:56)
[2022-11-23] MEDS: 0.9 % SODIUM CHLORIDE 1,000 ML IV SCH ×2 (13:25→23:30)
[2022-11-23] MEDS: oxyCODONE HCL 5 MG TABLET PO PRN (13:25)
[2022-11-23] MEDS: 0.9 % SODIUM CHLORIDE 10 ML SYRINGE IV SCH ×2 (15:33→22:13)
[2022-11-23] MEDS: HYDROmorphone 2 MG TABLET PO PRN (16:52)
[2022-11-23] MEDS: traZODone HCL 100 MG TABLET PO SCH (20:26)
[2022-11-23] MEDS: DOCUSATE SODIUM 100 MG CAPSULE PO SCH (20:27)
[2022-11-23] MEDS: LORazepam 1 MG TABLET PO SCH (20:27)
[2022-11-23] MEDS: SENNOSIDES 1 TABLET PO SCH (20:27)
[2022-11-23] MEDS: APIXABAN 5 MG TABLET PO SCH (20:27)
[2022-11-24] MEDS: oxyCODONE HCL 5 MG TABLET PO PRN ×3 (03:11→18:12)
[2022-11-24] MEDS: 0.9 % SODIUM CHLORIDE 10 ML SYRINGE IV SCH ×3 (05:30→23:33)
[2022-11-24] MEDS: LEVOTHYROXINE 88 MCG TABLET PO SCH (06:53)
[2022-11-24 07:30] LABS: Basophils # (Auto) 0.03 K/mcL (0.00-0.30); Basophils % (Auto) 0.6 % (0.0-2.0); Eosinophils # (Auto) 0.09 K/mcL (0.00-0.70); Eosinophils % (Auto) 1.9 % (0.0-7.0); Hematocrit 33.7 % (34.1-44.9); Hemoglobin 10.1 g/dL (11.2-15.7); Lymphocytes # (Auto) 0.63 K/mcL (1.50-4.80); Lymphocytes % (Auto) 13.1 % (15.5-49.0); Mean Cell Volume 94.4 fL (80.0-100.0); Mean Platelet Volume 10.1 fL (8.8-12.5); Monocytes # (Auto) 0.64 K/mcL (0.10-0.90); Monocytes % (Auto) 13.3 % (1.0-12.0); Neutrophils % (Auto) 70.7 % (38.0-78.0); Platelet Count 147 K/mcL (140-440); RBC 3.57 M/mcL (3.59-5.38); Red Cell Distribution Width 14.6 % (11.5-14.5); WBC 4.8 K/mcL (4.5-11.0)
[2022-11-24] MEDS: DOCUSATE SODIUM 100 MG CAPSULE PO SCH ×2 (08:42→20:12)
[2022-11-24] MEDS: APIXABAN 5 MG TABLET PO SCH ×2 (08:42→20:13)
[2022-11-24] MEDS: cefTRIAXone 1 GM VIAL IV SCH (08:43)
[2022-11-24] MEDS: METHYLCELLULOSE 500 MG TABLET PO SCH (08:43)
[2022-11-24] MEDS: LORazepam 1 MG TABLET PO SCH ×2 (08:43→20:12)
[2022-11-24] MEDS: 0.9 % SODIUM CHLORIDE 1,000 ML IV SCH ×2 (08:45→23:14)
[2022-11-24 08:50] LABS: ALT/SGPT < 5 U/L (<40); AST/SGOT 12 U/L (<32); Albumin 2.8 gm/dL (3.2-5.2); Albumin/Globulin Ratio 0.9 (1.0-2.3); Alkaline Phosphatase 43 U/L (39-117); Bilirubin,Total 0.3 mg/dL (0.1-1.0); Blood Urea Nitrogen 9 mg/dL (8-23); Calcium 7.9 mg/dL (8.6-10.4); Carbon Dioxide 26 mmol/L (22-30); Chloride 107 mmol/L (96-108); Glomerular Filtration Rate 53; Glucose 97 mg/dL (70-105)
[2022-11-24] MEDS ORDERED: DOCUSATE SODIUM 100 MG CAPSULE PO SCH (09:00)
[2022-11-24] MEDS: AZITHROMYCIN 500 MG in DEXTROSE 5% IN WATER 250 ML IV SCH (09:48)
[2022-11-24] MEDS ORDERED: fentaNYL 50 MCG PATCH TD SCH (10:00)
--- NOTE | 2022-11-24 16:03 | Internal Med Progress Note ---
SUBJECTIVE Subjective Patient information: Note initiated : 11/24/22 at 4:00 pm Service Date, if different from initiated Date: [] Patient: Heidi Bailey a 77 y/o F admitted on 11/23/22 for fall hit head. Chief Complaint: [] Interval history: Ms. Bailey is a 77 year old F history of COPD, fibromyalgia, arthritis, essential hypertensions, hypothyroidism, [facility] resident, presenting with weakness and fall. Patient is complaining of weakness for 1 week. She is also complaining of cough for 2 days. She is complaining of chills and diaphoresis for 3 days. Her legs gave up and she fell today. No loss of consciousness. She denies respiratory wheezing. She denies shortness of breath. She denies fever. Vital signs significant for pericardia heart rate in the 40s beats per minute and blood pressure guarded latest 191/50 6 mmHg. She is also being placed on 2 L nasal cannula oxygen's. Labs significant for lack of leukocytosis with WBC 8.2. D-dimer 0.84. Procalcitonin 0.35. Lactic acid pending. COVID screening negative. CTA negative for pulmonary embolism. Finding otherwise suggestive of atypical pneumonia in the presence of chronic bronchitis. 9mm noncalcified nodule in the lingular segment left upper lobe. Admission request was called for atypical pneumonia. 11/24: Afebrile overnight. WBC 4.8 this morning. Culture no growth today. Patient is still on 2 L/min nasal cannula oxygen's. She is complaining of improving degree of shortness of breath. She is commenting of productive cough with yellow sputum productions. She denies any respiratory wheezings. She denies any fever, chills, or diaphoresis. Her overall energy level has improved. Physical therapist evaluated the patient's and recommended that the patient's could go back to [facility] assisted living upon hospital discharge. Will continue IV fluid and empiric antibiotics with Rocephin and azithromycin as well continue to provide supplemental oxygen therapy. We will monitor blood culture result. Constitutional Vitals: Vital Signs Temp Pulse Resp BP Pulse Ox O2 Del Method O2 Flow Rate 37.1 C 48 L 18 130/68 96 Room Air 2 11/24/22 12:00 11/24/22 12:11/24/22 12:11/24/22 12:00 11/24/22 12:00 11/24/22 12:00 11/24/22 06:55 Period Temp Pulse Resp BP Sys/Greenberg Pulse Ox O2 Del Method O2 Flow Rate Last 24 Hr 36.1 C-37.1 C 48-71 18-20 95-130/51-68 94-96 Nasal Cannula- Room Air 2-2 Intake and Output 11/24/22 11/24/22 11/24/22 03:59 11:59 19:59 Intake Total 1420 1175 240 Output Total 800 600 240 Balance 620 575 0 Weight 68.719 kg 68.719 kg Patient Weight 11/25/22 03:59 Weight 68.719 kg Intake & Output: Intake & Output 11/24/22 11/24/22 11/24/22 03:59 11:59 19:59 Intake Total 1420 1175 240 Output Total 800 600 240 Balance 620 575 0 Weight 68.719 kg 68.719 kg Intake: IV 1000 1175 Sodium Chloride 0.9% 1,000 ml @ 1000 925 100 mls/hr IV .Q10H [facility] Rx#: [id number] Zithromax 500 mg In Dextrose 5% 250 in Water 250 ml @ 250 mls/hr IV Q24H [facility] Rx#:[id number] Oral 420 240 Output: Void Amount 800 600 240 Other: Urine Appearance Clear Clear Clear Urine Color Yellow Yellow Yellow Stool Size Moderate Stool Color Brown Stool Consistency Formed # Bowel Movements 1 Head Head exam: Present atraumatic and normal inspection Eye Eye exam: Present normal appearance ENT ENT exam: Present mucous membranes moist, normal exam and normal external ear exam Additional comments: Nasal cannula in place Neck Neck exam: Present normal inspection Respiratory Respiratory exam: Present decreased breath sounds Cardiovascular Cardiovascular exam: Present bradycardia GI/Abdominal GI/Abdominal exam: Present normal bowel sounds Back Exam Back exam: Present normal inspection Neurological Exam Neurological exam: Present alert and oriented X3 Skin Skin exam: Present intact and warm OBJ DATA Labs 11/24/22 05:35 11/24/22 05:35 Labs: Abnormal Lab Results 11/24/22 11/24/22 11/23/22 05:35 05:35 05:53 RBC 3.57 L Hgb 10.1 L Hct 33.7 L POC Hct MCHC 30.0 L RDW 14.6 H Neut % (Auto) Lymph % (Auto) 13.[address] [place] % (Auto) 13.3 H Lymph # (Auto) 0.63 L D-Dimer 0.84 H POC VBG Base Excess Anion Gap 6.0 L POC Glucose Calcium 7.9 L POC WB Ioniz Calcium Total Protein 5.8 L Albumin 2.8 L Albumin/Globulin Ratio 0.9 L Procalcitonin 11/23/22 11/23/22 11/23/22 05:53 05:53 05:46 RBC Hgb Hct POC Hct 35.0 L MCHC RDW Neut % (Auto) 78.7 H Lymph % (Auto) 8.[address] [place] % (Auto) Lymph # (Auto) 0.72 L D-Dimer POC VBG Base Excess Anion Gap POC Glucose 106 H Calcium POC WB Ioniz Calcium 1.15 L Total Protein Albumin Albumin/Globulin Ratio Procalcitonin 0.35 H 11/23/22 05:46 RBC Hgb Hct POC Hct MCHC RDW Neut % (Auto) Lymph % (Auto) [place] % (Auto) Lymph # (Auto) D-Dimer POC VBG Base Excess 3.0 H Anion Gap POC Glucose Calcium POC WB Ioniz Calcium Total Protein Albumin Albumin/Globulin Ratio Procalcitonin Meds: Medications Acetaminophen (Acetaminophen 325 Mg Tablet) 650 mg PO Q6HP PRN; Protocol PRN Reason: Per Pain Protocol/Fever > 101 Albuterol/Ipratropium (Ipratropium/Albuterol 3 Ml Ampul.Neb) 3 ml NEB Q4HRT PRN PRN Reason: Wheezing Apixaban (Apixaban 5 Mg Tablet) 5 mg PO BID [facility] Last Admin: 11/24/22 08:42 Dose: 5 mg Ceftriaxone Sodium (Ceftriaxone 1 Gm Vial) 1 gm IV Q24H [facility] Last Admin: 11/24/22 08:43 Dose: 1 gm Docusate Sodium (Docusate Sodium 100 Mg Capsule) 100 mg PO BID [facility] Last Admin: 11/24/22 08:42 Dose: 100 mg Fentanyl (Fentanyl 50 Mcg Patch) 50 mcg TD Q48H [facility] Last Admin: 11/24/22 08:43 Dose: 50 mcg Guaifenesin (Guaifenesin/Dextromethorphan 5ml Ud Cup) 10 ml PO Q4HP PRN PRN Reason: Cough Hydromorphone HCl (Hydromorphone 2 Mg Tablet) 4 mg PO Q6HP PRN PRN Reason: Pain, Severe Last Admin: 11/23/22 16:52 Dose: 4 mg Sodium Chloride (Sodium Chloride 0.9%) 1,000 mls @ 100 mls/hr IV .Q10H [facility] Last Admin: 11/24/22 08:45 Dose: 100 mls/hr Azithromycin 500 mg/ Dextrose 250 mls @ 250 mls/hr IV Q24H [facility]; Protocol Stop: 11/25/22 09:59 Last Infusion: 11/24/22 11:00 Dose: Infused Levothyroxine Sodium (Levothyroxine 88 Mcg Tablet) 88 mcg PO DAILY@0730 [facility] Last Admin: 11/24/22 06:53 Dose: 88 mcg Lorazepam (Lorazepam 1 Mg Tablet) 2 mg PO BID [facility] Last Admin: 11/24/22 08:43 Dose: 2 mg Methylcellulose (Methylcellulose 500 Mg Tablet) 500 mg PO DAILY [facility] Last Admin: 11/24/22 08:43 Dose: 500 mg Morphine Sulfate (Morphine 4 Mg/Ml Vial) 2 mg IV Q4HP PRN; Protocol PRN Reason: Per Pain Protocol Ondansetron HCl (Ondansetron 4 Mg/2 Ml Vial) 4 mg IV Q6HP PRN PRN Reason: Nausea And Vomiting Oxycodone HCl (Oxycodone Hcl 5 Mg Tablet) 5 mg PO Q4HP PRN; Protocol PRN Reason: Per Pain Protocol Last Admin: 11/24/22 13:21 Dose: 5 mg Senna (Sennosides 1 Tablet) 2 tab PO [facility] Last Admin: 11/23/22 20:27 Dose: 2 tab Sodium Chloride (0.9 % Sodium Chloride 10 Ml Syringe) 10 ml IV Q8 [facility] Last Admin: 11/24/22 05:30 Dose: Not Given Sumatriptan Succinate (Sumatriptan Succinate 50 Mg Tablet) 100 mg PO DAILYP PRN PRN Reason: Headache Trazodone HCl (Trazodone Hcl 100 Mg Tablet) 150 mg PO [facility] Last Admin: 11/23/22 20:26 Dose: 150 mg A/P Assessment and plan (1) Arthritis: Status: Chronic (2) Fibromyalgia: Status: Chronic (3) Chronic bronchitis: Status: Chronic (4) Pneumonia: Status: Chronic (5) Essential hypertension: Status: Chronic (6) Hypothyroid: Status: Chronic (7) Acute and chronic respiratory failure with hypoxia: Status: Acute (8) Pulmonary nodule less than 1 cm in diameter with low risk for malignant neoplasm: Status: Acute Narrative A/P Narrative: Assessment and Plans: 1. Acute on chronic respiratory failure with hypoxia, atypical pneumonia, h/o chronic bronchitis/COPD: Inpatient med surg Supplemental oxygen, titrate to achieve spo2 88-92% Serial lactic acid Procalcitonin Blood culture, no growth to date cbc w/ auto diff in the morning to trend WBC Rocephin Zithromax NS@100cc/hr Tylenol Robitussin DM Physical therapy evaluation and treatment-->back to [facility] upon d/c 2. 9mm noncalcified nodule in the lingular segment left upper lobe: Follow up serial imaging 3. Fibromyalgia: Fentanyl patch Dilaudid Tylenol Physical therapy evaluation and treatment 4. Arthritis, general: Fentanyl patch Dilaudid Tylenol Physical therapy evaluation and treatment 5. Essential hypertension, h/o: Hold Metoprolol succinate due to soft blood pressure/bradycardia Hold Amlodipine due to soft blood pressure 6. Hypothyroidism: Continue thyroid replacement therapy GI ppx: not currently indicated DVT ppx: Eliquis Code status: DNR Prognosis: guarded Disposition: inpatient med surg; PT Time Spent With Patient Time: Total time spent is greater than 50% in coordination of care (as documented) at patient's floor/unit and/or counseling patient: Subsequent: Total time with patient: 35 - 49 minutes QUALITY VTE Deep Vein Thrombosis/Pulmonary Embolism Present on Admission: No
[2022-11-24] MEDS: traZODone HCL 100 MG TABLET PO SCH (20:13)
[2022-11-24] MEDS: SENNOSIDES 1 TABLET PO SCH (20:13)
[2022-11-25] MEDS: oxyCODONE HCL 5 MG TABLET PO PRN ×2 (02:54→07:09)
[2022-11-25] MEDS: 0.9 % SODIUM CHLORIDE 10 ML SYRINGE IV SCH (05:32)
[2022-11-25 06:43] LABS: Basophils # (Auto) 0.02 K/mcL (0.00-0.30); Basophils % (Auto) 0.5 % (0.0-2.0); Eosinophils # (Auto) 0.09 K/mcL (0.00-0.70); Eosinophils % (Auto) 2.1 % (0.0-7.0); Hematocrit 33.7 % (34.1-44.9); Hemoglobin 10.3 g/dL (11.2-15.7); Lymphocytes # (Auto) 0.73 K/mcL (1.50-4.80); Lymphocytes % (Auto) 17.1 % (15.5-49.0); Mean Cell Volume 92.6 fL (80.0-100.0); Mean Corpuscular HGB Conc 30.6 g/dL (31.0-36.0); Mean Platelet Volume 10.7 fL (8.8-12.5); Monocytes # (Auto) 0.57 K/mcL (0.10-0.90); Monocytes % (Auto) 13.4 % (1.0-12.0); Neutrophils % (Auto) 66.7 % (38.0-78.0); Platelet Count 152 K/mcL (140-440); RBC 3.64 M/mcL (3.59-5.38); Red Cell Distribution Width 14.4 % (11.5-14.5); WBC 4.3 K/mcL (4.5-11.0)
[2022-11-25] MEDS: LEVOTHYROXINE 88 MCG TABLET PO SCH (07:09)
[2022-11-25 07:12] LABS: ALT/SGPT 6 U/L (<40); AST/SGOT 21 U/L (<32); Albumin/Globulin Ratio 0.9 (1.0-2.3); Alkaline Phosphatase 43 U/L (39-117); Bilirubin,Total 0.3 mg/dL (0.1-1.0); Blood Urea Nitrogen 9 mg/dL (8-23); Calcium 8.3 mg/dL (8.6-10.4); Carbon Dioxide 27 mmol/L (22-30); Chloride 107 mmol/L (96-108); Globulin 3.2 gm/dL (2.2-3.7); Glomerular Filtration Rate 61; Glucose 92 mg/dL (70-105)
[2022-11-25] MEDS: DOCUSATE SODIUM 100 MG CAPSULE PO SCH (08:20)
[2022-11-25] MEDS: cefTRIAXone 1 GM VIAL IV SCH (08:20)
[2022-11-25] MEDS: LORazepam 1 MG TABLET PO SCH (08:20)
[2022-11-25] MEDS: APIXABAN 5 MG TABLET PO SCH (08:20)
[2022-11-25] MEDS: METHYLCELLULOSE 500 MG TABLET PO SCH (08:35)
[2022-11-25] MEDS: AZITHROMYCIN 500 MG in DEXTROSE 5% IN WATER 250 ML IV SCH (08:37)
[2022-11-25] MEDS: 0.9 % SODIUM CHLORIDE 1,000 ML IV SCH (09:44)
[2022-11-25] MEDS: HYDROmorphone 2 MG TABLET PO PRN (11:11)
--- NOTE | 2022-11-25 11:35 | Discharge Summary ---
Discharge Provider Provider IMPORTANT FOLLOW-UP INFORMATION FOR PCP: Patient information: Note initiated : 11/25/22 at 11:33 am Service Date, if different from initiated Date: [] Patient: eHidi Bailey 77 y/o F admitted on 11/23/22 for fall hit head. Chief Complaint: [] Date of admission: 11/23/22 12:45 Discharge date: 11/25/22 Primary care physician: Pradeep Florian Attending physician on admission: Rudi Rosen Consults: 11/23/22 Consult to Physician [CONS] Stat Comment: Consulting Provider: Rudi Rosen Reason For Exam: Physician to Consult Attending physician on discharge: Rudi Rosen COURSE Hospital Course Hospital course: Ms. Bailey is a 77 year old F history of COPD, fibromyalgia, arthritis, essential hypertensions, hypothyroidism, [facility] assisted [facility] resident, presenting with weakness and fall. Patient is complaining of weakness for 1 week. She is also complaining of cough for 2 days. She is complaining of chills and diaphoresis for 3 days. Her legs gave up and she fell today. No loss of consciousness. She denies respiratory wheezing. She denies shortness of breath. She denies fever. Vital signs significant for pericardia heart rate in the 40s beats per minute and blood pressure guarded latest 191/50 6 mmHg. She is also being placed on 2 L nasal cannula oxygen's. Labs significant for lack of leukocytosis with WBC 8.2. D-dimer 0.84. Procalcitonin 0.35. Lactic acid pending. COVID screening negative. CTA negative for pulmonary embolism. Finding otherwise suggestive of atypical pneumonia in the presence of chronic bronchitis. 9mm noncalcified nodule in the lingular segment left upper lobe. Admission request was called for atypical pneumonia. 11/24: Afebrile overnight. WBC 4.8 this morning. Culture no growth today. Patient is still on 2 L/min nasal cannula oxygen's. She is complaining of improving degree of shortness of breath. She is commenting of productive cough with yellow sputum productions. She denies any respiratory wheezings. She denies any fever, chills, or diaphoresis. Her overall energy level has improved. Physical therapist evaluated the patient's and recommended that the patient's could go back to [facility] assisted living upon hospital discharge. Will continue IV fluid and empiric antibiotics with Rocephin and azithromycin as well continue to provide supplemental oxygen therapy. We will monitor blood culture result. 11/25: Discharged to assisted living facility with HH PT. Rx sent to pharmacy. 2 week PCP follow up appointment made. All questions were answered prior to patient being physically discharged. Discharge diagnosis: Pneumonia Time Spent with Patient Time attestation: Total time spent providing and/or coordinating discharge services: Time spent: Greater than 30 minutes EXAM Constitutional Vitals: Temp Pulse Resp BP Pulse Ox O2 Del Method O2 Flow Rate 36.5 C 51 L 16 136/72 93 Room Air 0.5 11/25/22 08:00 11/25/22 08:00 11/25/22 08:00 11/25/22 08:00 11/25/22 08:00 11/25/22 08:00 11/25/22 08:00 General appearance: cooperative and no acute distress Head Head exam: Present atraumatic and normocephalic Eye Eye exam: Present EOMI and PERRL ENT ENT exam: Present mucous membranes moist, normal exam and normal external ear exam Neck Neck exam: Present normal inspection; Absent lymphadenopathy, tenderness or thyromegaly Respiratory Respiratory exam: Absent accessory muscle use, respiratory distress or wheezes Cardiovascular Cardiovascular exam: Present normal rate and rhythm; Absent JVD GI/Abdominal GI/Abdominal exam: Present normal bowel sounds and soft; Absent organomegaly or tenderness Extremities Exam Extremities exam: Present full ROM, normal capillary refill and normal inspection; Absent tenderness Neurological Exam Neurological exam: Present alert, CN II-XII intact and oriented X3; Absent motor sensory deficit Psychiatric Psychiatric exam: Present normal affect and normal mood; Absent anxious or depressed Skin Skin exam: Present dry and intact Discharge Data Data Completed and Pending Labs on day of discharge: Labs from last 24 hours 11/25/22 11/25/22 05:37 05:37 WBC 4.3 L RBC 3.64 Hgb 10.3 L Hct 33.7 L MCV 92.6 MCH 28.3 MCHC 30.6 L RDW 14.4 Plt Count 152 MPV 10.7 Immature Gran % (Auto) 0.2 Neut % (Auto) 66.7 Lymph % (Auto) 17.1 [place] % (Auto) 13.4 H Eos % (Auto) 2.1 Baso % (Auto) 0.5 Lymph # (Auto) 0.73 L [place] # (Auto) 0.57 Eos # (Auto) 0.09 Baso # (Auto) 0.02 Immature Gran # 0.01 Absolute Neutrophils 2.84 Sodium 141 Potassium 4.3 Chloride 107 Carbon Dioxide 27 Anion Gap 7.0 L BUN 9 Creatinine 0.9 GFR Calculation 61 Glucose 92 Calcium 8.3 L Total Bilirubin 0.3 AST 21 ALT 6 Alkaline Phosphatase 43 Total Protein 6.2 Albumin 3.0 L Globulin 3.2 Albumin/Globulin Ratio 0.9 L Discharge Plan Patient/Caregiver Discharge Instructions Activity: increase activity as tolerated Diet: Regular Diet Instructions: Head Injury (ED), Acute Bronchitis (ED) Prescriptions: New dextromethorphan-guaifenesin 10-100 mg/5 mL Syrup 10 ml PO Q4HP PRN (Reason: Cough) Qty: 240 0RF amoxicillin-pot clavulanate [Augmentin] 500-125 mg tablet 1 tab PO BID Qty: 10 0RF Continued amlodipine 5 mg tablet 5 mg PO QDAY metoprolol succinate 50 mg tablet extended release 24 hr 50 mg PO QDAY Narcan 4 mg/actuation spray,non-aerosol 4 mg intranasal Q2M Rx Instructions: spray 1 dose into ONE nostril; alternate nostrils w each dose until help arrives fentanyl 50 mcg/hr patch 72 hour 1 patch transdermal Q48H hydromorphone 4 mg tablet 4 mg PO Q6H PRN (Reason: Pain, Severe) Eliquis 5 mg tablet 5 mg PO BID promethazine 25 mg tablet 25 mg PO Q6H PRN (Reason: Nausea) levothyroxine 88 MCG tablet 88 mcg PO DAILY lorazepam [Ativan] 2 MG tablet 2 mg PO .COMPLEX Rx Instructions: as needed trazodone 150 MG tablet 150 mg PO HS Metamucil capsule 2 cap PO DAILY docusate sodium 100 mg 100 mg PO DAILY sumatriptan 100 mg 100 mg PO PRN PRN (Reason: Headache) Follow Up Plan Follow up with: Pradeep Florian DO [Primary Care Provider] - Patient Disposition: Home Health Service Prognosis: Fair Rehab Potential: Good I certify that the patient requires SNF services: Yes Overall status at discharge: patient is progressing back to baseline Discharge Orders: Discharge Order (Routine); Ordered 11/25/22 Ordered By: Chi Claudia Pui QUALITY VTE Deep Vein Thrombosis/Pulmonary Embolism Present on Admission: No
== END 2022-11-25 12:51 | disposition home health service (06) | DRG 193 ==
LOC: MEDSUR 04:50 → ED 04:50 → OBSVTOIN 12:45 → MEDSUR 12:45
PROVIDERS: ADMIT Internal Medicine; ATTEND Internal Medicine